=== PATIENT | male | born 1975 | race African-American/Black ===

== ENCOUNTER 2021-10-18 11:25 | Outpatient (REF) | payer OTHER, SELFPAY ==
--- NOTE | ~2021-10-18 | XR_ITS ---
EXAMINATION: XR ABDOMEN COMPLETE CLINICAL INDICATION: Abdominal pain. COMPARISON: None TECHNIQUE: 3 views of the abdomen. FINDINGS: No dilated loops of large or small bowel are evident. No significant stool burden is appreciated within the colon. Psoas margins are intact. No free air is identified. No definite calcifications are seen overlying the locations of the kidneys or expected paths of the ureters. Phleboliths are noted about the pelvis. No significant bony abnormalities appreciated. XR/XR abdomen 3V IMPRESSION: No evidence of ileus or obstruction. No renal calcifications identified.
== END 2021-10-18 11:26 | disposition home or self-care (01) ==
LOC: HO.XRAY 11:25
PROVIDERS: PCP Internal Medicine; Visit Provider Internal Medicine
DX: R10.9 Unspecified abdominal pain (principal)
CPT/HCPCS: 74021

== ENCOUNTER 2022-03-29 14:35 | Outpatient (REF) | payer OTHER, SELFPAY ==
[2022-03-29 14:52] LABS: MANUAL DIFF FLAG NO
[2022-03-29 16:18] LABS: Basophils Percent Auto 0.7 % (0-2); Eosinophils Absolute Auto 0.1 X10*3/uL (0.0-0.4); Eosinophils Percent Auto 2.2 % (0-4); Hematocrit 40.8 % (42.0-52.0); Hemoglobin 13.7 g/dl (14.0-18.0); Imm Gran Abs Auto 0.02 X10*3/uL (0.00-0.03); Imm Gran Pct Auto 0.4 % (0.0-0.4); Lymphocytes Absolute Auto 1.9 X10*3/uL (1.2-4.9); Lymphocytes Percent Auto 34.6 % (20-40); Mean Corpuscular HGB Conc 33.6 g/dl (31.0-36.0); Mean Corpuscular Hemoglobin 29.6 pg (27.0-33.0); Mean Corpuscular Volume 88.1 fL (80.0-98.0); Mean Platelet Volume 11.4 fL (9.4-12.4); Monocytes Absolute Auto 0.7 X10*3/uL (0.1-1.2); Monocytes Percent Auto 11.9 % (2-11); Neutrophils Absolute Auto 2.8 x10*3/uL (2.0-8.3); Neutrophils Percent Auto 50.2 % (45-73); Platelet Count 239 X10*3/uL (160-400); Red Blood Count 4.63 X10*6/uL (4.60-5.80); Red Cell Distribution Width 12.2 % (11.0-16.0); White Blood Count 5.5 X10*3/uL (4.8-10.8)
[2022-03-29 16:44] LABS: B Type Natriuretic Peptide 255 pg/mL (<100)
[2022-03-29 17:09] LABS: Alanine Aminotransferase 24 U/L (0-40); Albumin Level 4.4 g/dL (3.5-5.0); Alkaline Phosphatase 69 U/L (39-117); Anion Gap 11 (12-20); Aspartate Amino Transferase 25 U/L (5-37); Bilirubin Total 0.5 mg/dL (0.0-1.0); Blood Urea Nitrogen 25 mg/dL (9-16); Calcium 9.3 mg/dL (8.4-10.2); Carbon Dioxide 28 mmol/L (22-29); Chloride 108 mmol/L (96-108); Cholesterol 164 mg/dL; Estimated Glomerular Filt Rate 46; Glucose Fasting 105 mg/dL (60-99); HDL Cholesterol 47 mg/dL; LDL Cholesterol Calculated 78 mg/dl; Potassium 4.4 mmol/L (3.3-5.1); Sodium 143 mmol/L (135-145); TSH reflex Free T4 1.24 uIU/mL (0.32-4.0); Total Protein 7.4 g/dL (6.5-8.0); Triglycerides 199 mg/dL; Vitamin D 25-OH Total 5.6 ng/mL (>30)
[2022-03-29 17:39] LABS: Appearance Urine Clear; Color Urine Yellow; Glucose Urine UA Negative (Negative); Leukocyte Esterase Urine Negative (Negative); Nitrite Urine Negative (Negative); PH 6.5 (5.0-9.0); Urine Blood Negative (Negative); Urine Ketones Negative (Negative); Urine Protein Trace mg/dL (Neg-Trace)
== END 2022-03-29 14:36 | disposition home or self-care (01) ==
LOC: HO.LAB 14:35
PROVIDERS: PCP Internal Medicine; Visit Provider Internal Medicine
DX: Z00.00 Encounter for general adult medical examination without abnormal findings (principal); I11.0 Hypertensive heart disease with heart failure; I50.9 Heart failure, unspecified; E78.00 Pure hypercholesterolemia, unspecified; E55.9 Vitamin D deficiency, unspecified
CPT/HCPCS: 36415; 80053; 80061; 81003; 82306; 83880; 84153; 84443; 85025

== ENCOUNTER 2022-07-11 14:17 | Outpatient (AMB) | payer OTHER, SELFPAY ==
[2022-07-11 14:28] VITALS: BP 126/84; TEMP 36.3; O2SAT 99; BMI 32.1
--- NOTE | 2022-07-11 14:28 | MHC.PC.OV ---
Vital Signs 07/11/22 14:28 Height 5 ft 8 in Weight 211 lb 4 oz BMI 32.1 BP 126/84 Blood Pressure Location Lt brachial Position Sitting Pulse Source Pulse Oximeter Temp 97.3 F Temp Source Skin Pulse Oximetry (%) 99 Oxygen Delivery Method Room Air Intake Visit Reasons: cardiomyopathy Intake Note: Pt is here for f/u Food Service Director Required: No Accompanied by: Self / Same As Patient Allergies No Known Drug Allergies Allergy (Unknown, Verified 12/21/23 13:24) Unknown Tobacco use date assessed: 07/11/22 HPI cardiomyopathy HPI Details Patient comes in today for his follow up visit States that he currently feels okay He denies any headaches or dizziness Denies any chest pains, no increased SOB No nausea/vomiting, no abdominal pain No change in bowel habits noted He has not had any follow up labs done recently although he states that he had his labs done back in March 2022 shortly after his last follow up visit [facility] Medical History (Updated 12/23/23 @ 02:36 by Subhash Garner MD) Chronic kidney disease, stage 3 Exotropia of right eye CVA (cerebral vascular accident) Erectile dysfunction Vitamin D deficiency Obesity (BMI 30-39.9) Benign essential hypertension HFrEF (heart failure with reduced ejection fraction) Hypertensive cardiomyopathy Surgical History (Updated 12/23/23 @ 02:35 by Subhash Garner MD) History of eye surgery Family History Mother No problems noted. Father No problems noted. Other Substance abuse Social History Housing: Apartment Alcohol intake: current Alcohol intake frequency: a few times a week Alcohol type: beer Patient Tobacco Use Status: Former Tobacco user e-Cigarette/Vaping Use: Never Used Second Hand Smoke Exposure: Yes service: No Current occupational status: employed Cognitive needs: No Hearing needs: No Vision needs: Yes (contacts) Questionnaire PHQ-9 Over the last 2 weeks, how often have you been bothered by any of the following problems? 1. Little interest or pleasure in doing things: not at all 2. Feeling down, depressed, or hopeless: not at all 3. Trouble falling or staying asleep, or sleeping too much: not at all 4. Feeling tired or having little energy: not at all 5. Poor appetite or overeating: several days 6. Feeling bad about yourself - or that you are a failure or have let yourself or your family down: not at all 7. Trouble concentrating on things, such as reading the newspaper or watching television: not at all 8. Moving or speaking so slowly that other people could have noticed. Or the opposite - being so fidgety or restless that you have been moving around a lot more than usual: not at all 9. Thoughts that you would be better off or of hurting yourself in some way: not at all Total score: 1 Depression Screening Interpretation: Negative 82860 - PHQ-9 Billing: Yes Source: Developed by Drs. Nick James, Abril Almanza, Sean Guzmán and colleagues, with an educational jannette from [employer]. Thrive Questionnaire Declines Thrive assessment: No Date Thrive assessed: 07/11/22 I am a: Patient What is your living situation today?: I have a steady place to live Within the past 12 months, did the food you bought not last and you didn't have the money to get more?: Never true Within the past 12 months, did you worry whether your food would run out before you got money to buy more?: Never true Do you have trouble paying for medicines?: No Do you have trouble getting transportation to medical appointments?: No Do you have trouble paying your heating and electricity bill?: No Do you have trouble taking care of your child, family member or friend?: No Do you have trouble with day-to-day activities such as bathing, preparing meals, shopping, managing finances, etc.?: No Are you currently unemployed and looking for a job?: No Are you interested in more education?: No Currently or been in a relationship where the following occur: no concerns reported AUDIT C Alcohol Use Questionnaire (AUDIT-C) 1. How often do you have a drink containing alcohol?: Never 3. How often do you have six or more drinks on one occasion?: Never Total Score: 0 Score Reviewed/Action Taken: Yes YARA-7 AMB Questionnaire YARA-7 Date YARA - 7 assessed: 07/11/22 Feeling nervous, anxious, or on edge: 1 = Several days Not being able to stop or control worryin = Several days Worrying too much about different things: 1 = Several days Trouble relaxin = Not at all Being so restless that it is hard to sit still: 0 = Not at all Becoming easily annoyed or irritable: 1 = Several days Feeling afraid as if something awful might happen: 0 = Not at all Total YARA-7 score (0-4 normal; 5-9 mild; 10-14 moderate; 15-21 severe): 4 Source: Developed by Drs. Nick James, Abril Almanza, Sean Guzmán and colleagues, with an educational jannette from [employer]. Review of Systems Const Denies chills, Denies fatigue, Denies fever(s) and Denies headache(s) ENT Denies dysphagia, Denies dizziness, Denies otalgia, Denies headache(s), Denies neck pain, Denies odynophagia and Denies sore throat Card Denies chest pain, Denies rapid heart rate, Denies irregular heart rhythm, Denies palpitations and Reports dyspnea on exertion (minimal, at times) Resp Denies chest congestion, Denies cough, Reports dyspnea on exertion (minimal, at times) and Denies wheezing GI Denies abdominal pain, Denies constipation, Denies dysphagia, Denies diarrhea, Denies nausea, Denies odynophagia and Denies vomiting Denies difficulty urinating, Denies dysuria and Denies urinary frequency Musc Denies back pain and Denies neck pain Skin/Breast Denies rash Neuro Denies dizziness and Denies headache(s) Endo Denies fatigue and Denies palpitations Aller/Immun Denies wheezing Physical exam (Primary Care) Vital Signs: Last Vital Signs Temp 97.3 F 07/11/22 14:28 BP 126/84 07/11/22 14:28 Pulse Ox 99 07/11/22 14:28 Oxygen Delivery Method Room Air 07/11/22 14:28 BMI result Body Mass Index 32.1 Tobacco/Smoking Status: Tobacco use Status Tobacco use date assessed 07/11/22 07/11/22 14:37 Patient Tobacco Use Status Former Tobacco user 07/11/22 14:37 e-Cigarette/Vaping Use Never Used 07/11/22 14:37 PHQ-9: PHQ-9 Score PHQ-9: Total score 1 07/11/22 14:59 Depression Screening Interpretation: Negative Thrive Assessment: Date of Thrive Assessment Date Thrive assessed 07/11/22 07/11/22 14:37 Currently or been in a relationship where the following occur: no concerns reported Const General: no acute distress and alert HENMT Ears: TM's normal bilaterally and EAC's normal Throat: Yes posterior oropharynx normal and Yes tonsils normal (no TP congestion) Neck Neck: Yes no lymphadenopathy and Yes supple Thyroid: Thyroid normal Resp Auscultation: clear to auscultation bilaterally, no rales and no wheezes Cardio Rate: regular rate Rhythm: regular rhythm Heart sounds: no murmurs GI Palpation (GI): Soft to palpation and nontender Auscultation: normal bowel sounds General: Yes no CVA tenderness Back/Spine/Pelvis Back: no CVA tenderness Thoracic/Lumbar Spine: No lumbar spinal tenderness Skin Rashes: no rashes Extrem General: Yes no clubbing, cyanosis or edema Results Reviewed Results Reviewed: Laboratory Tests 03/29/22 03/29/22 03/29/22 14:47 14:50 14:50 WBC 5.5 Hgb 13.7 L Hct 40.8 L Plt Count 239 Sodium 143 Potassium 4.4 Creatinine 1.61 H Estimated GFR 46 Fasting Glucose 105 H Calcium 9.3 AST 25 ALT 24 B-Natriuretic Peptide Triglycerides 199 Cholesterol 164 LDL Cholesterol, Calc 78 HDL Cholesterol 47 PSA Screen 0.90 25-OH Vitamin D Total 5.6 TSH 1.24 Ur Specific [place] 1.020 Urine Protein Trace Urine Glucose (UA) Negative Urine Blood Negative 03/29/22 14:50 WBC Hgb Hct Plt Count Sodium Potassium Creatinine Estimated GFR Fasting Glucose Calcium AST ALT B-Natriuretic Peptide 255 H Triglycerides Cholesterol LDL Cholesterol, Calc HDL Cholesterol PSA Screen 25-OH Vitamin D Total TSH Ur Specific [place] Urine Protein Urine Glucose (UA) Urine Blood Assessment and Plan Assessment & Plan (1) Hypertensive cardiomyopathy: Code(s): I11.9 - Hypertensive heart disease without heart failure; I43 - Cardiomyopathy in diseases classified elsewhere Qualifiers: Heart failure presence: with heart failure Qualified Code(s): I11.0 - Hypertensive heart disease with heart failure; I43 - Cardiomyopathy in diseases classified elsewhere Plan: His most recent echocardiogram done in 09/2020 revealed mild improvement in his cardiac function, with EF now at 30 to 35% Previous echocardiogram showed (+) severe global hypokinesia and massively dilated LA States that he had a cardiac MRI done at [facility] recently and we will try to obtain a copy of this report for review Reinforced importance of compliance with his medications and BP control Continue Aspirin 81 mg QD and Metoprolol ER 50 mg QD Follow up with cardiology as scheduled (2) HFrEF (heart failure with reduced ejection fraction): Code(s): I50.20 - Unspecified systolic (congestive) heart failure Plan: His most recent echocardiogram done in 09/2020 showed (+) mild improvement in his cardiac function, with EF at 30 to 35% Reinforced fluid restriction Continue Entresto 97-103 mg BID, Minoxidil 5 mg QD and HCTZ 25 mg QD Results of his labs done back in March 2022 reviewed and discussed with patient (3) Benign essential hypertension: Code(s): I10 - Essential (primary) hypertension Plan: Reinforced low sodium diet - goal is systolic BP of 120 to 130 mm or less Continue Hydralazine 25 mg BID, Metoprolol ER 50 mg QD and HCTZ 25 mg QD Will have him recheck his labs in 4 months for follow up (4) Chronic kidney disease, stage 3: Code(s): N18.30 - Chronic kidney disease, stage 3 unspecified Qualifiers: Chronic kidney disease stage 3 subtype: stage 3a (GFR 45-59) Qualified Code(s): N18.31 - Chronic kidney disease, stage 3a Plan: He is advised that he is currently at stage 3 CKD based on the results of his labs back in March 2022 Will go ahead and refer him to nephrology for further evaluation and management (5) Vitamin D deficiency: Code(s): E55.9 - Vitamin D deficiency, unspecified Plan: He is advised that his Vitamin D level was very low on his labs done back in March 2022 Will go ahead and start him on Vitamin D3 2000 units QD (6) Obesity (BMI 30-39.9): Code(s): E66.9 - Obesity, unspecified Plan: Reinforced diet/exercise as tolerated/lose weight Plan Follow up in 4 months Orders: Orders Complete Blood Count Auto Diff 4 Months I10 - Essential (primary) hypertension UA CC w/rflx Micro + Cult 4 Months R30.0 - Dysuria Vitamin D 25-OH Total 4 Months E55.9 - Vitamin D deficiency, unspecified Comprehensive [place]. Panel Fast 4 Months E78.00 - Pure hypercholesterolemia, unspecified Lipid Panel 4 Months E78.00 - Pure hypercholesterolemia, unspecified TSH reflex Free T4 4 Months E78.00 - Pure hypercholesterolemia, unspecified B Type Natriuretic Peptide 4 Months I50.9 - Heart failure, unspecified Referrals Nephrology Referral N18.30 - Chronic kidney disease, stage 3 unspecified Medications: New cholecalciferol (vitamin D3) 50 mcg PO DAILY 90 caps 3RF 90 days E55.9 - Vitamin D deficiency, unspecified Coding Level of Care Code Est Pt Level 4 (88025) Diagnoses Cardiomyopathy due to hypertension, with heart failure I11.0; I43 Heart failure presence: with heart failure HFrEF (heart failure with reduced ejection fraction) I50.20 Benign essential hypertension I10 Stage 3a chronic kidney disease N18.31 Chronic kidney disease stage 3 subtype: stage 3a (GFR 45-59) Vitamin D deficiency E55.9 Obesity (BMI 30-39.9) E66.9
== END 2022-07-11 15:05 | disposition home or self-care (01) ==
LOC: HO.HMGH 14:17
PROVIDERS: PCP Internal Medicine; Visit Provider Internal Medicine
DX: I11.0 Hypertensive heart disease with heart failure (principal); I43 Cardiomyopathy in diseases classified elsewhere; I50.20 Unspecified systolic (congestive) heart failure; I10 Essential (primary) hypertension; N18.31 Chronic kidney disease, stage 3a; E55.9 Vitamin D deficiency, unspecified; E66.9 Obesity, unspecified
CPT/HCPCS: 99499

== ENCOUNTER 2022-11-30 14:10 | Outpatient (AMB) | payer OTHER, SELFPAY ==
[2022-11-30 14:30] VITALS: BP 162/90; PULSE 113; O2SAT 98; BMI 31.8
--- NOTE | 2022-11-30 14:30 | MHC.PC.OV ---
Vital Signs 11/30/22 14:30 Height 5 ft 8 in Weight 209 lb 6 oz BMI 31.8 BP 162/90 H Blood Pressure Location Lt brachial Position Sitting Pulse 113 H Pulse Source Pulse Oximeter Pulse Oximetry (%) 98 Intake Visit Reasons: cardiomyopathy, CKD, HTN Intake Note: pt is here for caridomypathy, CKD, htn Lymphedema Therapist Required: No Accompanied by: Self / Same As Patient Allergies No Known Drug Allergies Allergy (Unknown, Verified 11/30/22 14:51) Unknown Medication List - Last Reconciled 11/30/22 by Joseph Amaya PA-C aspirin 81 mg PO DAILY cholecalciferol (vitamin D3) 50 mcg PO DAILY 90 days hydralazine 25 mg PO BID hydrochlorothiazide 25 mg PO DAILY metoprolol succinate ER 50 mg PO DAILY minoxidil 5 mg PO DAILY nifedipine ER 90 mg PO DAILY sacubitril-valsartan 97-103 mg (Entresto) 1 tab PO BID Tobacco use date assessed: 07/11/22 Dental Screening Dental Screen Date: 11/30/22 Did you have a dental visit in the last 12 months?: No Did you have a dental problem in the last 6 months where you did not have access to dental care?: No Was dental information given to patient?: Patient declined HPI cardiomyopathy, CKD, HTN HPI Details Patient is a 47-year-old male here today for follow-up visit. This is the 1st time I am meeting this 47-year-old male past medical history significant for congestive heart failure with reduced ejection fraction, hypertension, CKD stage 3. He reports over the last 3 months having increased shortness of breath on exertion and both at rest. Denies any productive cough, fever chills. He does report some abdominal bloating which she finds is odd. He is followed by (Dr. Mays) cardiology in [place]. He also is concerned about erectile dysfunction to which she attributes to his multiple cardiac medications. [facility] Medical History Benign essential hypertension HFrEF (heart failure with reduced ejection fraction) Hypertensive cardiomyopathy Obesity (BMI 30-39.9) Vitamin D deficiency Surgical History No pertinent past surgical history Family History Mother No problems noted. Father No problems noted. Other Substance abuse Social History Housing: Apartment Alcohol intake: current Alcohol intake frequency: holidays/special occasions only Patient Tobacco Use Status: Former Tobacco user e-Cigarette/Vaping Use: Never Used Second Hand Smoke Exposure: Yes service: No Current occupational status: employed Cognitive needs: No Hearing needs: No Vision needs: Yes (contacts) Questionnaire Thrive Questionnaire Date Thrive assessed: 07/11/22 YARA-7 AMB Questionnaire YARA-7 Date YARA - 7 assessed: 07/11/22 Source: Developed by Drs. Nick James, Abril Almanza, Sean Guzmán and colleagues, with an educational jannette from [employer]. Review of Systems Const Denies headache(s) Eyes Denies loss of vision ENT Denies vertigo, Denies dizziness, Denies headache(s) and Denies sore throat Card Denies chest pain, Denies leg edema, Denies lightheadedness and Reports dyspnea Resp Denies cough, Denies hemoptysis, Reports dyspnea and Denies wheezing GI Denies abdominal pain, Denies melena, Denies constipation, Denies diarrhea and Denies vomiting Denies dysuria, Denies urinary frequency and Denies urinary urgency Musc Denies arthralgias, Denies joint swelling, Denies numbness and Denies tingling Neuro Denies Abnormal speech present, Denies behavioral changes, Denies vertigo, Denies dizziness, Denies headache(s), Denies loss of vision, Denies memory loss, Denies numbness and Denies tingling Psych Denies anxiety, Denies behavioral changes, Denies depression, Denies memory loss and Denies panic attacks Prasad/Lymph Denies easy bleeding and Denies easy bruising Aller/Immun Denies wheezing Physical exam (Primary Care) Vital Signs: Last Vital Signs Pulse 113 H 11/30/22 14:30 BP 162/90 H 11/30/22 14:30 Pulse Ox 98 11/30/22 14:30 BMI result Body Mass Index 31.8 Tobacco/Smoking Status: Tobacco use Status Tobacco use date assessed 07/11/22 11/30/22 14:35 Patient Tobacco Use Status Former Tobacco user 11/30/22 14:35 e-Cigarette/Vaping Use Never Used 11/30/22 14:35 Thrive Assessment: Date of Thrive Assessment Date Thrive assessed 07/11/22 11/30/22 14:35 Const General: healthy appearing, no acute distress, alert and awake Nutritional Appearance: well nourished Orientation/consciousness: oriented to person, oriented to place and oriented to time HENMT Ears: TM's normal bilaterally General nose exam: Normal nasal mucous membranes and turbinates present Eyes Conjunctivae: conjunctivae normal Sclerae: sclerae normal Pupils: Equal, round and reactive pupils present Neck Neck: Yes no lymphadenopathy and Yes no JVD Thyroid: Thyroid normal Carotids: no bruits Resp Effort & Inspection: normal respiratory effort and not tachypneic Auscultation: no crackles, no rales, no rhonchi and no wheezes Cardio Rate: regular rate Rhythm: regular rhythm Heart sounds: no murmurs and normal S1 and S2 GI Palpation (GI): Soft to palpation, nontender, no hepatomegaly and no splenomegaly Auscultation: normal bowel sounds Skin General skin exam: no rashes or lesions noted and dry skin Neuro General: oriented to person, oriented to place and oriented to time Cranial nerves: Yes Equal, round and reactive pupils present Speech: No Abnormal speech present Gait exam (Neuro): Normal gait present Motor exam (neuro): no tremor noted Extrem Right upper extremity: full ROM Left upper extremity: full ROM Right lower extremity: full ROM; no edema Left lower extremity: full ROM; no edema Psych Mental Status: mental status grossly normal Speech and movement: Normal speech and movement present Affect: normal affect Attitude: cooperative Thought process: Normal thought process present Assessment and Plan Assessment & Plan (1) SOB (shortness of breath) on exertion: Code(s): R06.02 - Shortness of breath Plan: Patient reporting shortness of breath on exertion and at night while lying down. Somewhat concerning for worsening heart failure with a setting of abdominal bloating as well. Will send for x-ray of chest, pro bnp and nonfasting labs. Advised to follow-up with physical therapist aide with his symptoms as well. Will consider starting Lasix (2) HFrEF (heart failure with reduced ejection fraction): Code(s): I50.20 - Unspecified systolic (congestive) heart failure Plan: As above patient has been diagnosed with heart failure with reduced ejection fraction is followed by physical therapist aide. He does reports over the last 2-3 months he has been experiencing some shortness of breath on exertion and at night while lying down. Concerns for decompensated heart failure thus will send for urgent labs and chest x-ray. Advised him to call his physical therapist aide for at your appointment as well. (3) Erectile disorder: Code(s): N52.9 - Male erectile dysfunction, unspecified Plan: As above patient has been noting erectile dysfunction since starting a lot of his cardiac medications. He is willing to trial Viagra before sexual activity. Orders: Orders CA stress test Today R06.02 - Shortness of breath XR chest 2V Today R06.02 - Shortness of breath Basic Metabolic Panel Today R06.02 - Shortness of breath NT-proBNP Today R06.02 - Shortness of breath Complete Blood Count no Diff Today R06.02 - Shortness of breath Medications: New sildenafil 25 mg PO DAILY 14 days 14 tabs 0RF N52.9 - Male erectile dysfunction, unspecified, R06.02 - Shortness of breath Coding Level of Care Code Est Pt Level 4 (61107) Diagnoses SOB (shortness of breath) on exertion R06.02 HFrEF (heart failure with reduced ejection fraction) I50.20 Erectile disorder N52.9
== END 2022-11-30 15:10 | disposition home or self-care (01) ==
PROVIDERS: PCP Internal Medicine; Visit Provider Physician Assistant
DX: R06.02 Shortness of breath (principal); I50.20 Unspecified systolic (congestive) heart failure; N52.9 Male erectile dysfunction, unspecified
CPT/HCPCS: 99214

== ENCOUNTER 2022-11-30 15:19 | Outpatient (REF) | payer OTHER, SELFPAY ==
--- NOTE | ~2022-11-30 | XR_ITS ---
EXAMINATION: XR CHEST CLINICAL INFORMATION: Intermittent anterior chest pain. COMPARISON: 10/18/2021 TECHNIQUE: 2 views of the chest were obtained. FINDINGS: The lungs are well expanded. No focal consolidation. No pleural effusion. Cardiac silhouette is enlarged. XR/XR chest 2V IMPRESSION: Enlarged cardiac silhouette. Advise clinical correlation.
[2022-11-30 16:36] LABS: Hematocrit 43.5 % (42.0-52.0); Hemoglobin 14.9 g/dl (14.0-18.0); Mean Corpuscular HGB Conc 34.3 g/dl (31.0-36.0); Mean Corpuscular Volume 90.4 fL (80.0-98.0); Mean Platelet Volume 11.9 fL (9.4-12.4); Platelet Count 225 X10*3/uL (160-400); Red Blood Count 4.81 X10*6/uL (4.60-5.80); Red Cell Distribution Width 12.7 % (11.0-16.0); White Blood Count 6.5 X10*3/uL (4.8-10.8)
[2022-11-30 17:04] LABS: Anion Gap 13 (12-20); Blood Urea Nitrogen 25 mg/dL (9-16); Calcium 9.9 mg/dL (8.4-10.2); Carbon Dioxide 23 mmol/L (22-29); Chloride 108 mmol/L (96-108); Estimated Glomerular Filt Rate 40; Glucose Random 106 mg/dL (60-115); Potassium 3.7 mmol/L (3.3-5.1); Sodium 140 mmol/L (135-145)
[2022-12-06 15:58] LABS: NT-proBNP 9436 pg/mL (<125)
== END 2022-11-30 15:20 | disposition home or self-care (01) ==
LOC: HO.LAB 15:19
PROVIDERS: Absent Provider Internal Medicine; PCP Internal Medicine; Visit Provider Physician Assistant
DX: R06.02 Shortness of breath (principal)
CPT/HCPCS: 36415; 71046; 80048; 83880; 85027

== ENCOUNTER 2023-04-02 14:14 | Outpatient (AMB) | payer OTHER, SELFPAY ==
[2023-04-02 14:51] VITALS: BP 140/90; PULSE 59; O2SAT 99; BMI 33.0
--- NOTE | 2023-04-02 14:51 | MHC.PC.OV ---
Vital Signs 04/02/23 14:51 Height 5 ft 8 in Weight 217 lb BMI 33.0 BP 140/90 H Blood Pressure Location Lt brachial Position Sitting Pulse 59 Pulse Source Pulse Oximeter Pulse Oximetry (%) 99 Oxygen Delivery Method Room Air Intake Visit Reasons: f/u HTN/ CHF Supervisor Of Research Required: No Field Hockey And Lacrosse Coach: Not Required per policy Accompanied by: Self / Same As Patient Allergies No Known Drug Allergies Allergy (Unknown, Verified 12/21/23 13:24) Unknown Medication List - Last Reconciled 04/02/23 by Subhash Garner MD aspirin 81 mg PO DAILY carvedilol 25 mg PO BID cholecalciferol (vitamin D3) 50 mcg PO DAILY 90 days hydralazine 50 mg PO BID hydrochlorothiazide 25 mg PO DAILY minoxidil 5 mg PO DAILY nifedipine ER 90 mg PO DAILY sacubitril-valsartan 97-103 mg (Entresto) 1 tab PO BID sildenafil 25 mg PO DAILY 14 days Tobacco use date assessed: 07/11/22 Dental Screening Dental Screen Date: 04/02/23 Did you have a dental visit in the last 12 months?: No Did you have a dental problem in the last 6 months where you did not have access to dental care?: No Was dental information given to patient?: Patient has dentist HPI f/u HTN/ CHF HPI Details Patient comes in today for his follow up visit - I have not seen patient since June 2022 He was seen by another provider here in the office a few months ago (November 2022) for some increased SOB and ED and was sent for some labs at the time Has also since been started additionally on Sildenafil 25 mg PRN for his ED Patient states that he currently feels okay He denies any headaches or dizziness Denies any chest pains, no increased SOB No nausea/vomiting, no abdominal pain No change in bowel habits noted He was seen by Dr. Mays a few weeks ago for cardiology follow up - was advised that he was supposed to have a follow up echocardiogram done but he seems to be unaware of this [facility] Medical History (Updated 12/23/23 @ 02:36 by Subhash Garner MD) Chronic kidney disease, stage 3 Exotropia of right eye CVA (cerebral vascular accident) Erectile dysfunction Vitamin D deficiency Obesity (BMI 30-39.9) Benign essential hypertension HFrEF (heart failure with reduced ejection fraction) Hypertensive cardiomyopathy Surgical History (Updated 12/23/23 @ 02:35 by Subhash Garner MD) History of eye surgery Family History Mother No problems noted. Father No problems noted. Other Substance abuse Social History Housing: Apartment Alcohol intake: current Alcohol intake frequency: a few times a week Alcohol type: beer Patient Tobacco Use Status: Former Tobacco user e-Cigarette/Vaping Use: Never Used Second Hand Smoke Exposure: Yes service: No Current occupational status: employed Cognitive needs: No Hearing needs: No Vision needs: Yes (contacts) Questionnaire Thrive Questionnaire Date Thrive assessed: 07/11/22 YARA-7 AMB Questionnaire YARA-7 Date YARA - 7 assessed: 07/11/22 Source: Developed by Drs. Nick James, Abril Almanza, Sean Guzmán and colleagues, with an educational jannette from [employer]. Review of Systems Const Denies chills, Denies fatigue, Denies fever(s) and Denies headache(s) ENT Denies dysphagia, Denies dizziness, Denies otalgia, Denies headache(s), Denies neck pain, Denies odynophagia and Denies sore throat Card Denies chest pain, Denies rapid heart rate, Denies irregular heart rhythm, Denies palpitations and Reports dyspnea on exertion (mild, at times) Resp Denies chest congestion, Denies cough, Reports dyspnea on exertion (mild, at times) and Denies wheezing GI Denies abdominal pain, Denies constipation, Denies dysphagia, Denies diarrhea, Denies nausea, Denies odynophagia and Denies vomiting Denies difficulty urinating, Denies dysuria and Denies urinary frequency Musc Denies back pain and Denies neck pain Skin/Breast Denies rash Neuro Denies dizziness and Denies headache(s) Endo Denies fatigue and Denies palpitations Aller/Immun Denies wheezing Physical exam (Primary Care) Vital Signs: Last Vital Signs Pulse 59 04/02/23 14:51 BP 140/90 H 04/02/23 14:51 Pulse Ox 99 04/02/23 14:51 Oxygen Delivery Method Room Air 04/02/23 14:51 BMI result Body Mass Index 33.0 Tobacco/Smoking Status: Tobacco use Status Tobacco use date assessed 07/11/22 04/02/23 14:52 Patient Tobacco Use Status Former Tobacco user 04/02/23 14:52 e-Cigarette/Vaping Use Never Used 04/02/23 14:52 Thrive Assessment: Date of Thrive Assessment Date Thrive assessed 07/11/22 04/02/23 14:52 Const General: no acute distress and alert HENMT Ears: TM's normal bilaterally and EAC's normal Throat: Yes posterior oropharynx normal and Yes tonsils normal (no TP congestion) Neck Neck: Yes no lymphadenopathy and Yes supple Thyroid: Thyroid normal Resp Auscultation: clear to auscultation bilaterally, no rales and no wheezes Cardio Rate: regular rate Rhythm: regular rhythm Heart sounds: no murmurs GI Palpation (GI): Soft to palpation and nontender Auscultation: normal bowel sounds General: Yes no CVA tenderness Back/Spine/Pelvis Back: no CVA tenderness Thoracic/Lumbar Spine: No lumbar spinal tenderness Skin Rashes: no rashes Extrem General: Yes no clubbing, cyanosis or edema Results Reviewed Results Reviewed: Laboratory Tests 11/30/22 15:37 WBC 6.5 Hgb 14.9 Hct 43.5 Plt Count 225 Sodium 140 Potassium 3.7 Creatinine 1.82 H Estimated GFR 40 Random Glucose 106 Calcium 9.9 D NT-Pro-B Natriuret Pep 9436 H Assessment and Plan Assessment & Plan (1) Hypertensive cardiomyopathy: Code(s): I11.9 - Hypertensive heart disease without heart failure; I43 - Cardiomyopathy in diseases classified elsewhere Qualifiers: Heart failure presence: with heart failure Qualified Code(s): I11.0 - Hypertensive heart disease with heart failure; I43 - Cardiomyopathy in diseases classified elsewhere Plan: His most recent echocardiogram done in 09/2020 revealed mild improvement in his cardiac function, with EF at 30 to 35% Previous echocardiogram showed (+) severe global hypokinesia and massively dilated LA He had cardiac MRI done at [facility] sometime in 2021 but we do not have access to this although cardiology OV notes a few weeks ago mentioned that his MRI revealed extensive fibrosis with a drop in his LVEF from previous, consistent with burnt-out hypertensive cardiomyopathy He was reportedly sent for repeat echocardiogram for follow up but patient appears unaware of this so we will go ahead and reorder this to help ensure that this is done Reinforced importance of compliance with his medications and BP control Continue Aspirin 81 mg QD, Carvedilol 25 mg BID and Entresto 97-103 mg BID Follow up with cardiology as scheduled (2) HFrEF (heart failure with reduced ejection fraction): Code(s): I50.20 - Unspecified systolic (congestive) heart failure Plan: Most recent echocardiogram done in 09/2020 showed mild improvement in his cardiac function, with EF now at 30 to 35% Reinforced fluid restriction Continue Entresto 97-103 mg BID, Minoxidil 5 mg QD and HCTZ 25 mg QD Results of his labs done back in November 2022 revealed his BNP to be significantly elevated at >9000 pg/ml (3) Benign essential hypertension: Code(s): I10 - Essential (primary) hypertension Plan: Reinforced low sodium diet - goal is systolic BP of 120 to 130 mm or less Continue Hydralazine 25 mg BID, Metoprolol ER 50 mg QD and HCTZ 25 mg QD (4) Chronic kidney disease, stage 3: Code(s): N18.30 - Chronic kidney disease, stage 3 unspecified Qualifiers: Chronic kidney disease stage 3 subtype: stage 3a (GFR 45-59) Qualified Code(s): N18.31 - Chronic kidney disease, stage 3a Plan: Discussed that this is 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 and have again emphasized the importance of strict BP control to help slow down his renal function decline He has been referred by cardiology to nephrology for continuing management of his CKD and states that he is still waiting for an appointment to be scheduled with nephrology Will have him recheck his labs in 4 months for follow up (5) Vitamin D deficiency: Code(s): E55.9 - Vitamin D deficiency, unspecified Plan: Continue Vitamin D3 2000 units QD (6) Obesity (BMI 30-39.9): Code(s): E66.9 - Obesity, unspecified Plan: Reinforced diet/exercise as tolerated/lose weight Plan Follow up in 4 months Orders: Orders CA echo transthoracic complete 04/02/23 I50.20 - Unspecified systolic (congestive) heart failure, I11.9 - Hypertensive heart disease without heart failure, I43 - Cardiomyopathy in diseases classified elsewhere Comprehensive [place]. Panel Fast 4 Months E78.00 - Pure hypercholesterolemia, unspecified B Type Natriuretic Peptide 4 Months I50.9 - Heart failure, unspecified Complete Blood Count Auto Diff 4 Months I10 - Essential (primary) hypertension Lipid Panel 4 Months E78.00 - Pure hypercholesterolemia, unspecified Medications: New carvedilol must administer with a meal/food 25 mg PO BID Coding Level of Care Code Est Pt Level 4 (22929) Diagnoses Cardiomyopathy due to hypertension, with heart failure I11.0; I43 Heart failure presence: with heart failure HFrEF (heart failure with reduced ejection fraction) I50.20 Benign essential hypertension I10 Stage 3a chronic kidney disease N18.31 Chronic kidney disease stage 3 subtype: stage 3a (GFR 45-59) Vitamin D deficiency E55.9 Obesity (BMI 30-39.9) E66.9
== END 2023-04-02 15:32 | disposition home or self-care (01) ==
PROVIDERS: PCP Internal Medicine; Visit Provider Internal Medicine
DX: I11.0 Hypertensive heart disease with heart failure (principal); I43 Cardiomyopathy in diseases classified elsewhere; I50.20 Unspecified systolic (congestive) heart failure; I10 Essential (primary) hypertension; N18.31 Chronic kidney disease, stage 3a; E55.9 Vitamin D deficiency, unspecified; E66.9 Obesity, unspecified
CPT/HCPCS: 99499

== ENCOUNTER 2023-08-07 14:28 | Outpatient (AMB) | payer OTHER, SELFPAY ==
--- NOTE | 2023-08-07 14:36 | MHC.PC.OV ---
Vital Signs 08/07/23 14:39 Height 5 ft 8 in Weight 216 lb 8 oz BMI 32.9 BP 120/70 Blood Pressure Location Lt brachial Position Sitting Pulse 98 Pulse Source Pulse Oximeter Pulse Oximetry (%) 97 Oxygen Delivery Method Room Air Intake Visit Reasons: Congestive heart failure Intake Note: Patient is here to follow up on Congestive Heart Failure. Optoelectronics Engineer Required: No 411 Directory Assistance Operator: Not Required per policy Accompanied by: Self / Same As Patient Allergies No Known Drug Allergies Allergy (Unknown, Verified 12/21/23 13:24) Unknown Medication List - Last Reconciled 08/07/23 by Subhash Garner MD aspirin 81 mg PO DAILY carvedilol 25 mg PO BID cholecalciferol (vitamin D3) 50 mcg PO DAILY 90 days hydralazine 50 mg PO BID hydrochlorothiazide 25 mg PO DAILY minoxidil 5 mg PO DAILY nifedipine ER 90 mg PO DAILY sacubitril-valsartan 97-103 mg (Entresto) 1 tab PO BID sildenafil 25 mg PO DAILY 14 days Tobacco use date assessed: 08/07/23 Dental Screening Dental Screen Date: 08/07/23 Did you have a dental visit in the last 12 months?: No Did you have a dental problem in the last 6 months where you did not have access to dental care?: No Was dental information given to patient?: No HPI Congestive heart failure HPI Details Patient comes in today for his follow up visit States that he feels okay He denies any headaches or dizziness Denies any chest pains, no increased SOB lately No nausea/vomiting, no abdominal pain No change in bowel habits noted Needs his Hydralazine Rx refilled He was not able to get his follow up labs done recently; labs were last done back in November 2022 He was also seen by his brick setter operator for follow up last month and was again advised that as his cardiac MRI done in 2021 revealed extensive fibrosis consistent with a burnt-out hypertensive cardiomyopathy, was recommended to have an updated echocardiogram done, which he apparently did not show up for; had repeat echocardiogram reordered again [facility] Medical History (Updated 12/23/23 @ 02:36 by Subhash Garner MD) Chronic kidney disease, stage 3 Exotropia of right eye CVA (cerebral vascular accident) Erectile dysfunction Vitamin D deficiency Obesity (BMI 30-39.9) Benign essential hypertension HFrEF (heart failure with reduced ejection fraction) Hypertensive cardiomyopathy Surgical History (Updated 12/23/23 @ 02:35 by Subhash Garner MD) History of eye surgery Family History Mother No problems noted. Father No problems noted. Other Substance abuse Social History Housing: Apartment Alcohol intake: current Alcohol intake frequency: a few times a week Alcohol type: beer Patient Tobacco Use Status: Former Tobacco user e-Cigarette/Vaping Use: Never Used Second Hand Smoke Exposure: Yes service: No Current occupational status: employed Cognitive needs: No Hearing needs: No Vision needs: Yes (contacts) Questionnaire PHQ-9 Over the last 2 weeks, how often have you been bothered by any of the following problems? 1. Little interest or pleasure in doing things: not at all 2. Feeling down, depressed, or hopeless: not at all 3. Trouble falling or staying asleep, or sleeping too much: not at all 4. Feeling tired or having little energy: not at all 5. Poor appetite or overeating: not at all 6. Feeling bad about yourself - or that you are a failure or have let yourself or your family down: not at all 7. Trouble concentrating on things, such as reading the newspaper or watching television: not at all 8. Moving or speaking so slowly that other people could have noticed. Or the opposite - being so fidgety or restless that you have been moving around a lot more than usual: not at all 9. Thoughts that you would be better off or of hurting yourself in some way: not at all Total score: 0 Depression Screening Interpretation: Negative Depression Screening Done: Yes 76909 - PHQ-9 Billing: Yes Source: Developed by Drs. Nick James, Abril Almanza, Sean Guzmán and colleagues, with an educational jannette from [employer]. Thrive Questionnaire Date Thrive assessed: 08/07/23 I am a: Patient What is your living situation today?: I have a steady place to live Within the past 12 months, did the food you bought not last and you didn't have the money to get more?: Never true Within the past 12 months, did you worry whether your food would run out before you got money to buy more?: Never true Do you have trouble paying for medicines?: No Do you have trouble getting transportation to medical appointments?: No Do you have trouble paying your heating and electricity bill?: No Do you have trouble taking care of your child, family member or friend?: No Do you have trouble with day-to-day activities such as bathing, preparing meals, shopping, managing finances, etc.?: No Are you currently unemployed and looking for a job?: No Are you interested in more education?: No Currently or been in a relationship where the following occur: no concerns reported THRIVE Score: 0 AUDIT C Alcohol Use Questionnaire (AUDIT-C) 1. How often do you have a drink containing alcohol?: 2-3 times a week 2. How many drinks containing alcohol do you have on a typical day when you are drinking?: 1 or 2 3. How often do you have six or more drinks on one occasion?: Never Total Score: 3 Score Reviewed/Action Taken: Yes YARA-7 AMB Questionnaire YARA-7 Date YARA - 7 assessed: 08/07/23 Feeling nervous, anxious, or on edge: 0 = Not at all Not being able to stop or control worryin = Not at all Worrying too much about different things: 0 = Not at all Trouble relaxin = Not at all Being so restless that it is hard to sit still: 0 = Not at all Becoming easily annoyed or irritable: 0 = Not at all Feeling afraid as if something awful might happen: 0 = Not at all Total YARA-7 score (0-4 normal; 5-9 mild; 10-14 moderate; 15-21 severe): 0 Source: Developed by Drs. Nick James, Abril Almanza, Sean Guzmán and colleagues, with an educational jannette from [employer]. Review of Systems Const Denies chills, Denies fatigue, Denies fever(s) and Denies headache(s) ENT Denies dysphagia, Denies dizziness, Denies otalgia, Denies headache(s), Denies neck pain, Denies odynophagia and Denies sore throat Card Denies chest pain, Denies rapid heart rate, Denies irregular heart rhythm, Denies palpitations and Reports dyspnea on exertion (minimal, at times) Resp Denies chest congestion, Denies cough, Reports dyspnea on exertion (minimal, at times) and Denies wheezing GI Denies abdominal pain, Denies constipation, Denies dysphagia, Denies diarrhea, Denies nausea, Denies odynophagia and Denies vomiting Denies difficulty urinating, Denies dysuria and Denies urinary frequency Musc Denies back pain and Denies neck pain Skin/Breast Denies rash Neuro Denies dizziness and Denies headache(s) Endo Denies fatigue and Denies palpitations Aller/Immun Denies wheezing Physical exam (Primary Care) Vital Signs: Last Vital Signs Pulse 98 08/07/23 14:39 BP 120/70 08/07/23 14:39 Pulse Ox 97 08/07/23 14:39 Oxygen Delivery Method Room Air 08/07/23 14:39 BMI result Body Mass Index 32.9 Tobacco/Smoking Status: Tobacco use Status Tobacco use date assessed 08/07/23 08/07/23 14:43 Patient Tobacco Use Status Former Tobacco user 08/07/23 14:43 e-Cigarette/Vaping Use Never Used 08/07/23 14:43 PHQ-9: PHQ-9 Score PHQ-9: Total score 0 08/07/23 15:27 Depression Screening Interpretation: Negative Thrive Assessment: Date of Thrive Assessment Date Thrive assessed 08/07/23 08/07/23 14:43 Currently or been in a relationship where the following occur: no concerns reported Const General: no acute distress and alert HENMT Ears: TM's normal bilaterally and EAC's normal Throat: Yes posterior oropharynx normal and Yes tonsils normal (no TP congestion) Neck Neck: Yes no lymphadenopathy and Yes supple Thyroid: Thyroid normal Resp Auscultation: clear to auscultation bilaterally, no rales and no wheezes Cardio Rate: regular rate Rhythm: regular rhythm Heart sounds: no murmurs GI Palpation (GI): Soft to palpation and nontender Auscultation: normal bowel sounds General: Yes no CVA tenderness Back/Spine/Pelvis Back: no CVA tenderness Thoracic/Lumbar Spine: No lumbar spinal tenderness Skin Rashes: no rashes Extrem General: Yes no clubbing, cyanosis or edema Assessment and Plan Assessment & Plan (1) Hypertensive cardiomyopathy: Code(s): I11.9 - Hypertensive heart disease without heart failure; I43 - Cardiomyopathy in diseases classified elsewhere Qualifiers: Heart failure presence: with heart failure Qualified Code(s): I11.0 - Hypertensive heart disease with heart failure; I43 - Cardiomyopathy in diseases classified elsewhere Plan: His most recent echocardiogram done in 09/2020 revealed mild improvement in his cardiac function, with EF at 30 to 35% Previous echocardiogram showed (+) severe global hypokinesia and massively dilated LA Had cardiac MRI done at [facility] sometime in 2021 but we do not have access to this although cardiology OV notes last month mentioned that his MRI revealed extensive fibrosis with a drop in his LVEF from previous, consistent with burnt-out hypertensive cardiomyopathy He has been sent for repeat echocardiogram for follow up - he reportedly no-showed his previously ordered echocardiogram late last year Reinforced importance of compliance with his medications and BP control Continue Aspirin 81 mg QD, Carvedilol 25 mg BID and Entresto 97-103 mg BID Follow up with cardiology as scheduled (2) HFrEF (heart failure with reduced ejection fraction): Code(s): I50.20 - Unspecified systolic (congestive) heart failure Plan: His most recent echocardiogram done in 09/2020 showed mild improvement in his cardiac function, with EF at 30 to 35% He is currently scheduled to get an updated echocardiogram done in a couple of weeks with cardiology Reinforced fluid restriction Continue Entresto 97-103 mg BID, Minoxidil 5 mg QD and HCTZ 25 mg QD Patient is instructed to try getting his follow-up labs done FARSHAD - will just have him use his current orders (updated) for his lab draw but have added a couple of tests for his to do as well (TSH, Vitamin D level, U/A) (3) Benign essential hypertension: Code(s): I10 - Essential (primary) hypertension Plan: Reinforced low sodium diet - goal is systolic BP of 120 to 130 mm or less Continue Hydralazine 50 mg BID, Carvedilol 25 mg BID, Nifedipine ER 90 mg QD and HCTZ 25 mg QD (4) Chronic kidney disease, stage 3: Code(s): N18.30 - Chronic kidney disease, stage 3 unspecified Qualifiers: Chronic kidney disease stage 3 subtype: stage 3a (GFR 45-59) Qualified Code(s): N18.31 - Chronic kidney disease, stage 3a Plan: Discussed that this is 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 and have again emphasized the importance of strict BP control to help slow down his renal function decline He has been referred by cardiology to nephrology previously for continuing management of his CKD but he apparently did not show up for his initial nephrology consultation a few months ago and has been advised by cardiology last month to reach out again to nephrology and reschedule his appointment with them FARSHAD (5) Vitamin D deficiency: Code(s): E55.9 - Vitamin D deficiency, unspecified Plan: Continue Vitamin D3 2000 units QD Will recheck his Vitamin D level FARSHAD for follow up (6) Obesity (BMI 30-39.9): Code(s): E66.9 - Obesity, unspecified Plan: Reinforced diet/exercise as tolerated/lose weight Plan Follow up in 4 months Orders: Orders TSH reflex Free T4 08/07/23 E78.00 - Pure hypercholesterolemia, unspecified Vitamin D 25-OH Total 08/07/23 E55.9 - Vitamin D deficiency, unspecified UA CC w/rflx Micro + Cult 08/07/23 R30.0 - Dysuria Medications: Changed From hydralazine 50 mg PO BID To hydralazine 50 mg (2 x 25 mg) PO BID 360 tabs 1RF 90 days Coding Level of Care Code Est Pt Level 4 (51276) Diagnoses Cardiomyopathy due to hypertension, with heart failure I11.0; I43 Heart failure presence: with heart failure HFrEF (heart failure with reduced ejection fraction) I50.20 Benign essential hypertension I10 Stage 3a chronic kidney disease N18.31 Chronic kidney disease stage 3 subtype: stage 3a (GFR 45-59) Vitamin D deficiency E55.9 Obesity (BMI 30-39.9) E66.9
[2023-08-07 14:39] VITALS: BP 120/70; PULSE 98; O2SAT 97; BMI 32.9
== END 2023-08-07 15:30 | disposition home or self-care (01) ==
PROVIDERS: PCP Internal Medicine; Visit Provider Internal Medicine
DX: I13.0 Hypertensive heart and chronic kidney disease with heart failure and stage 1 through stage 4 chronic kidney disease, or unspecified chronic kidney disease (principal); N18.31 Chronic kidney disease, stage 3a; I43 Cardiomyopathy in diseases classified elsewhere; I50.20 Unspecified systolic (congestive) heart failure; E55.9 Vitamin D deficiency, unspecified; E66.9 Obesity, unspecified
CPT/HCPCS: 99214

== ENCOUNTER 2023-08-24 09:01 | Outpatient (REF) | payer OTHER, SELFPAY ==
[2023-08-24 09:15] LABS: MANUAL DIFF FLAG NO
[2023-08-24 09:24] LABS: Basophils Percent Auto 0.7 % (0-2); Eosinophils Absolute Auto 0.1 X10*3/uL (0.0-0.4); Eosinophils Percent Auto 1.1 % (0-4); Hematocrit 39.1 % (42.0-52.0); Hemoglobin 13.5 g/dl (14.0-18.0); Imm Gran Abs Auto 0.01 X10*3/uL (0.00-0.03); Imm Gran Pct Auto 0.2 % (0.0-0.4); Lymphocytes Absolute Auto 1.5 X10*3/uL (1.2-4.9); Mean Corpuscular HGB Conc 34.5 g/dl (31.0-36.0); Mean Corpuscular Hemoglobin 30.1 pg (27.0-33.0); Mean Corpuscular Volume 87.1 fL (80.0-98.0); Monocytes Absolute Auto 0.6 X10*3/uL (0.1-1.2); Neutrophils Absolute Auto 3.3 x10*3/uL (2.0-8.3); Platelet Count 209 X10*3/uL (160-400); Red Blood Count 4.49 X10*6/uL (4.60-5.80); Red Cell Distribution Width 12.4 % (11.0-16.0); White Blood Count 5.5 X10*3/uL (4.8-10.8)
[2023-08-24 09:38] LABS: Appearance Urine Clear; Color Urine Yellow; Glucose Urine UA Negative (Negative); Leukocyte Esterase Urine Negative (Negative); Nitrite Urine Negative (Negative); Specific Gravity - Urine 1.025 (1.005-1.025); UMIC TRIGGER UACC YES; Urine Blood Negative (Negative); Urine Ketones Trace mg/dL (Negative); Urine Protein 100 (2+) mg/dL (Neg-Trace)
[2023-08-24 09:40] LABS: B Type Natriuretic Peptide 449 pg/mL (<100)
[2023-08-24 09:42] LABS: Alanine Aminotransferase 15 U/L (0-40); Albumin Level 4.3 g/dL (3.5-5.0); Alkaline Phosphatase 50 U/L (39-117); Anion Gap 14 (12-20); Aspartate Amino Transferase 15 U/L (5-37); Bilirubin Total 0.6 mg/dL (0.0-1.0); Blood Urea Nitrogen 21 mg/dL (9-16); Calcium 9.9 mg/dL (8.4-10.2); Carbon Dioxide 25 mmol/L (22-29); Chloride 105 mmol/L (96-108); Cholesterol 165 mg/dL (<200); Estimated Glomerular Filt Rate 44; Glucose Fasting 107 mg/dL (60-99); HDL Cholesterol 53 mg/dL (>40); LDL Cholesterol Calculated 104 mg/dL (<100); Potassium 3.8 mmol/L (3.3-5.1); Sodium 140 mmol/L (135-145); Total Protein 7.8 g/dL (6.5-8.0); Triglycerides 42 mg/dL (<150)
[2023-08-24 09:43] LABS: Bacteria Urine None Seen (None Seen); Hyaline Casts Urine 0-2 /LPF (0-2); RBC Urine 0-2 /HPF (0-2); Squamous Epithelial Cell Urine 0-2 /HPF (0-2); WBC Urine 0-5 /HPF (0-5)
[2023-08-24 10:00] LABS: TSH reflex Free T4 1.13 uIU/mL (0.32-4.0); Vitamin D 25-OH Total 23.7 ng/mL (>30)
== END 2023-08-24 09:02 | disposition home or self-care (01) ==
LOC: HO.LAB 09:01
PROVIDERS: PCP Internal Medicine; Visit Provider Internal Medicine
DX: I11.0 Hypertensive heart disease with heart failure (principal); I50.9 Heart failure, unspecified; E78.00 Pure hypercholesterolemia, unspecified; E55.9 Vitamin D deficiency, unspecified
CPT/HCPCS: 36415; 80053; 80061; 81001; 82306; 83880; 84443; 85025

== ENCOUNTER 2023-12-21 10:34 | Outpatient (AMB) | payer OTHER, SELFPAY ==
[2023-12-21 10:37] VITALS: BP 170/110; PULSE 95; O2SAT 96; BMI 31.8
--- NOTE | 2023-12-21 10:37 | A.OFFPC_ITS ---
Vital Signs 12/21/23 10:37 Height 5 ft 8 in Weight 209 lb BMI 31.8 BP 170/110 H Blood Pressure Location Lt brachial Position Sitting Pulse 95 Pulse Source Pulse Oximeter Pulse Oximetry (%) 96 Oxygen Delivery Method Room Air Intake Visit Reasons: [facility] Facility Maintenance Manager Required: No Accompanied by: Self / Same As Patient Allergies No Known Drug Allergies Allergy (Unknown, Verified 12/21/23 13:24) Unknown Medication List - Last Reconciled 12/21/23 by Subhash Garner MD aspirin 81 mg PO DAILY carvedilol 25 mg PO BID cholecalciferol (vitamin D3) 50 mcg PO DAILY 90 days hydralazine 50 mg (2 x 25 mg) PO BID 90 days hydrochlorothiazide 25 mg PO DAILY minoxidil 5 mg PO DAILY nifedipine ER 90 mg PO DAILY sacubitril-valsartan 97-103 mg (Entresto) 1 tab PO BID sildenafil 25 mg PO DAILY 14 days Tobacco use date assessed: 12/21/23 Dental Screening Dental Screen Date: 12/21/23 Did you have a dental visit in the last 12 months?: No Did you have a dental problem in the last 6 months where you did not have access to dental care?: No Was dental information given to patient?: No HPI [facility] HPI Details Patient comes in today for his follow up visit States that he feels okay Denies any headaches or dizziness Denies any chest pains, no increased SOB lately No nausea/vomiting, no abdominal pain No change in bowel habits noted States that he woke up late this morning and just took his BP and cardiac meds about an hour ago and this is likely the reason for his blood pressure being high at this time States that his blood pressure is otherwise normally well-controlled when he has been checking it over the past few months States that he has some upcoming labs ordered by cardiology and is wondering if he can get these done over here at [facility] instead of having to go down to [facility] to get them done [facility] Medical History (Updated 12/21/23 @ 13:43 by Subhash Garner MD) Erectile dysfunction Vitamin D deficiency Obesity (BMI 30-39.9) Benign essential hypertension HFrEF (heart failure with reduced ejection fraction) Hypertensive cardiomyopathy Surgical History No pertinent past surgical history Family History Mother No problems noted. Father No problems noted. Other Substance abuse Social History Housing: Apartment Alcohol intake: current Alcohol intake frequency: a few times a week Alcohol type: beer Patient Tobacco Use Status: Former Tobacco user e-Cigarette/Vaping Use: Never Used Second Hand Smoke Exposure: Yes service: No Current occupational status: employed Cognitive needs: No Hearing needs: No Vision needs: Yes (contacts) Questionnaire PHQ-9 Over the last 2 weeks, how often have you been bothered by any of the following problems? 1. Little interest or pleasure in doing things: not at all 2. Feeling down, depressed, or hopeless: not at all 3. Trouble falling or staying asleep, or sleeping too much: not at all 4. Feeling tired or having little energy: not at all 5. Poor appetite or overeating: not at all 6. Feeling bad about yourself - or that you are a failure or have let yourself or your family down: not at all 7. Trouble concentrating on things, such as reading the newspaper or watching television: not at all 8. Moving or speaking so slowly that other people could have noticed. Or the opposite - being so fidgety or restless that you have been moving around a lot m ore than usual: not at all 9. Thoughts that you would be better off or of hurting yourself in some way: not at all Total score: 0 Depression Screening Interpretation: Negative Depression Screening Done: Yes 16128 - PHQ-9 Billing: Yes Source: Developed by Drs. Nick James, Abril Almanza, Sean Guzmán and colleagues, with an educational jannette from [employer]. Thrive Questionnaire Date Thrive assessed: 12/21/23 I am a: Patient What is your living situation today?: I have a steady place to live Within the past 12 months, did the food you bought not last and you didn't have the money to get more?: Never true Within the past 12 months, did you worry whether your food would run out before you got money to buy more?: Never true Do you have trouble paying for medicines?: No Do you have trouble getting transportation to medical appointments?: No Do you have trouble paying your heating and electricity bill?: No Do you have trouble taking care of your child, family member or friend?: No Do you have trouble with day-to-day activities such as bathing, preparing meals, shopping, managing finances, etc.?: No Are you currently unemployed and looking for a job?: No Are you interested in more education?: No Please select the resources that you would like help with: None Currently or been in a relationship where the following occur: No concerns reported THRIVE Score: 0 AUDIT C Alcohol Use Questionnaire (AUDIT-C) 1. How often do you have a drink containing alcohol?: 2-3 times a week 2. How many drinks containing alcohol do you have on a typical day when you are drinking?: 1 or 2 3. How often do you have six or more drinks on one occasion?: Never Total Score: 3 Score Reviewed/Action Taken: Yes YARA-7 AMB Questionnaire YARA-7 Date YARA - 7 assessed: 12/21/23 Feeling nervous, anxious, or on edge: 0 = Not at all Not being able to stop or control worryin = Not at all Worrying too much about different things: 0 = Not at all Trouble relaxin = Not at all Being so restless that it is hard to sit still: 0 = Not at all Becoming easily annoyed or irritable: 0 = Not at all Feeling afraid as if something awful might happen: 0 = Not at all Total YARA-7 score (0-4 normal; 5-9 mild; 10-14 moderate; 15-21 severe): 0 Source: Developed by Drs. Nick James, Abril Almanza, Sean Guzmán and colleagues, with an educational jannette from [employer]. Review of Systems Const Denies chills, Denies fatigue, Denies fever(s) and Denies headache(s) ENT Denies dysphagia, Denies dizziness, Denies otalgia, Denies headache(s), Denies neck pain, Denies odynophagia and Denies sore throat Card Denies chest pain, Denies rapid heart rate, Denies irregular heart rhythm, Denies palpitations and Reports dyspnea on exertion (minimal, at times) Resp Denies chest congestion, Denies cough, Reports dyspnea on exertion (minimal, at times) and Denies wheezing GI Denies abdominal pain, Denies constipation, Denies dysphagia, Denies diarrhea, Denies nausea, Denies odynophagia and Denies vomiting Denies difficulty urinating, Denies dysuria and Denies urinary frequency Musc Denies back pain and Denies neck pain Skin/Breast Denies rash Neuro Denies dizziness and Denies headache(s) Endo Denies fatigue and Denies palpitations Aller/Immun Denies wheezing Physical exam (Primary Care) Vital Signs: Last Vital Signs Pulse 95 12/21/23 10:37 BP 170/110 H 12/21/23 10:37 Pulse Ox 96 12/21/23 10:37 Oxygen Delivery Method Room Air 12/21/23 10:37 BMI result Body Mass Index 31.8 Tobacco/Smoking Status: Tobacco use Status Tobacco use date assessed 12/21/23 12/21/23 10:42 Patient Tobacco Use Status Former Tobacco user 12/21/23 10:42 e-Cigarette/Vaping Use Never Used 12/21/23 10:42 PHQ-9: PHQ-9 Score PHQ-9: Total score 0 12/21/23 11:47 Depression Screening Interpretation: Negative Thrive Assessment: Date of Thrive Assessment Date Thrive assessed 12/21/23 12/21/23 10:42 Currently or been in a relationship where the following occur: No concerns reported Const General: no acute distress and alert HENMT Ears: TM's normal bilaterally and EAC's normal Throat: Yes posterior oropharynx normal and Yes tonsils normal (no TP congestion) Neck Neck: Yes no lymphadenopathy and Yes supple Thyroid: Thyroid normal Resp Auscultation: clear to auscultation bilaterally, no rales and no wheezes Cardio Rate: regular rate Rhythm: regular rhythm Heart sounds: no murmurs GI Palpation (GI): Soft to palpation and nontender Auscultation: normal bowel sounds General: Yes no CVA tenderness Back/Spine/Pelvis Back: no CVA tenderness Thoracic/Lumbar Spine: No lumbar spinal tenderness Skin Rashes: no rashes Extrem General: Yes no clubbing, cyanosis or edema Results Reviewed Results Reviewed: Laboratory Tests 11/30/22 08/24/23 08/24/23 15:37 09:10 09:13 WBC 6.5 5.5 Hgb 14.9 13.5 L Hct 43.5 39.1 L Plt Count 225 209 Sodium 140 140 Potassium 3.7 3.8 Creatinine 1.82 H 1.69 H Estimated GFR 40 44 Random Glucose 106 Fasting Glucose 107 H Calcium 9.9 D 9.9 AST 15 ALT 15 B-Natriuretic Peptide 449 H NT-Pro-B Natriuret Pep 9436 H Triglycerides 42 Cholesterol 165 LDL Cholesterol, Calc 104 H HDL Cholesterol 53 25-OH Vitamin D Total 23.7 L TSH 1.13 Urine pH 6.0 Ur Specific [place] 1.025 Urine Protein 100 (2+) H Urine Glucose (UA) Negative Urine Blood Negative Urine Nitrite Negative Ur Leukocyte Esterase Negative Assessment and Plan Assessment & Plan (1) Hypertensive cardiomyopathy: Code(s): I11.9 - Hypertensive heart disease without heart failure; I43 - Cardiomyopathy in diseases classified elsewhere Qualifiers: Heart failure presence: with heart failure Qualified Code(s): I11.0 - Hypertensive heart disease with heart failure; I43 - Cardiomyopathy in diseases classified elsewhere Plan: His echocardiogram done back in 09/2020 revealed mild improvement in his cardiac function from previous, with EF at 30 to 35% Previous echocardiogram showed (+) severe global hypokinesia and massively dilated LA His most recent echocardiogram done in July 2023 revealed findings similar to his 2021 echo - (+) dilated left ventricle, with severe concentric LV hypertrophy with moderately reduced LV systolic function. LVEF is at 35 to 40%, with severe hypokinesia of the basal inferior wall and basal to septal mckenzie States that he had a cardiac MRI done at [facility] last year (2022) but we do not have access to this report Reinforced importance of compliance with his medications and BP control Continue Aspirin 81 mg QD and Carvedilol 25 mg BID Follow up with cardiology as scheduled (2) HFrEF (heart failure with reduced ejection fraction): Code(s): I50.20 - Unspecified systolic (congestive) heart failure Plan: Echocardiogram done in 09/2020 showed mild improvement in his cardiac function, with EF at 30 to 35% His most recent echocardiogram done in July 2023 revealed (+) dilated left ventricle, with severe concentric LV hypertrophy with moderately reduced LV systolic function. LVEF is at 35 to 40%, with severe hypokinesia of the basal inferior wall and basal to septal mckenzie Reinforced fluid restriction Continue Entresto 97-103 mg BID, Minoxidil 5 mg QD and HCTZ 25 mg QD Patient is advised that he can get his follow-up labs ordered by cardiology done at [facility] and have advised him to remind the lab to send us a copy of his results as well (3) Benign essential hypertension: Code(s): I10 - Essential (primary) hypertension Plan: Reinforced low sodium diet - goal is systolic BP of 120 to 130 mm or less Continue Hydralazine 50 mg BID, Carvedilol 25 mg BID, Nifedipine ER 90 mg QD and HCTZ 25 mg QD His BP is high this morning but he states that he woke up late today and just took all of his meds about an hour ago Will have patient follow up with nurse navigation to recheck his BP in a couple of weeks He is also reminded to continue monitoring his blood pressure regularly (4) Chronic kidney disease, stage 3: Code(s): N18.30 - Chronic kidney disease, stage 3 unspecified Qualifiers: Chronic kidney disease stage 3 subtype: stage 3a (GFR 45-59) Qualified Code(s): N18.31 - Chronic kidney disease, stage 3a Plan: He is advised that based on his recent labs, he is currently is stage 3 CKD Have advised him that the best way to help preserve his renal function is to keep his BP tightly controlled Will continue to monitor his renal function regularly May need to consider nephrology referral in the near future (5) Vitamin D deficiency: Code(s): E55.9 - Vitamin D deficiency, unspecified Plan: Continue Vitamin D3 2000 units QD (6) Erectile dysfunction: Code(s): N52.9 - Male erectile dysfunction, unspecified Qualifiers: Erectile dysfunction type: unspecified Qualified Code(s): N52.9 - Male erectile dysfunction, unspecified Plan: Is likely multifactorial, including due to his comorbidities as well as his meds Continue Sildenafil 25 mg PRN (7) Obesity (BMI 30-39.9): Code(s): E66.9 - Obesity, unspecified Plan: Reinforced diet/exercise as tolerated/lose weight Plan Follow up in 4 months Orders: Orders Comprehensive Branch. Panel Fast 4 Months E78.00 - Pure hypercholesterolemia, unspecified B Type Natriuretic Peptide 4 Months I50.9 - Heart failure, unspecified TSH reflex Free T4 4 Months E78.00 - Pure hypercholesterolemia, unspecified UA CC w/rflx Micro + Cult 4 Months R30.0 - Dysuria Complete Blood Count Auto Diff 4 Months D64.9 - Anemia, unspecified Lipid Panel 4 Months E78.00 - Pure hypercholesterolemia, unspecified Vitamin D 25-OH Total 4 Months E55.9 - Vitamin D deficiency, unspecified Coding Level of Care Code Est Pt Level 4 (90702) Complex EM visit Add On G2211 Diagnoses Cardiomyopathy due to hypertension, with heart failure I11.0; I43 Heart failure presence: with heart failure HFrEF (heart failure with reduced ejection fraction) I50.20 Benign essential hypertension I10 Stage 3a chronic kidney disease N18.31 Chronic kidney disease stage 3 subtype: stage 3a (GFR 45-59) Vitamin D deficiency E55.9 Erectile dysfunction, unspecified erectile dysfunction type N52.9 Erectile dysfunction type: unspecified Obesity (BMI 30-39.9) E66.9
== END 2023-12-21 11:48 | disposition home or self-care (01) ==
PROVIDERS: PCP Internal Medicine; Visit Provider Internal Medicine
DX: I13.0 Hypertensive heart and chronic kidney disease with heart failure and stage 1 through stage 4 chronic kidney disease, or unspecified chronic kidney disease (principal); I43 Cardiomyopathy in diseases classified elsewhere; I50.20 Unspecified systolic (congestive) heart failure; N18.31 Chronic kidney disease, stage 3a; E55.9 Vitamin D deficiency, unspecified; E66.9 Obesity, unspecified; Z68.31 Body mass index [BMI] 31.0-31.9, adult; N52.9 Male erectile dysfunction, unspecified
CPT/HCPCS: 99214; G2211